=== PATIENT | female | born 1985 | race Caucasian/White ===

== ENCOUNTER 2024-12-25 14:20 | Emergency (ER) | payer OTHER, SELFPAY ==
[2024-12-25] VITALS (13 sets, daily range): BP systolic 130–161; BP diastolic 80–104; PULSE 67–94; RESP 16–20; TEMP 36.5–36.9; O2SAT 93–100; BMI 17.9
--- NOTE | 2024-12-25 14:56 | EKG_ITS ---
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
--- NOTE | 2024-12-25 15:00 | ED_ITS ---
HPI - Nausea/Vomiting/Diarrhea General Chief complaint: Nausea/Vomiting/Diarrhea Stated complaint: possible pulled a muscle throwing up, nausea Time Seen by Provider: 12/25/24 14:42 Source: patient Mode of arrival: Ambulatory History of Present Illness HPI Narrative: 39-year-old female history of back surgery 10 years ago with rods and screws in place presents with nonbilious nonbloody nausea vomiting diarrhea for 5 days with no recent antibiotic use having continued symptoms along with back pain but unable to hold anything down at this time due to nausea vomiting. Patient was seen yesterday at [facility] ER or by CT scan was done and CT scan showed no acute process just diverticulosis without diverticulitis and no other acute process. Other than what is stated 14 point review of system is negative. Related Data Home Medications ?Medication ?Instructions ?Recorded ?Confirmed alprazolam 1 mg tablet 1 mg PO BID-TID PRN anxiety 12/25/24 12/25/24 morphine 60 mg tablet,extended 60 mg PO Q12H 12/25/24 12/25/24 release oxycodone 5 mg capsule 10 mg PO Q4-6H PRN pain 12/0512/25/24 zolpidem 12.5 mg tablet,extended 12.5 mg PO BEDTIME CA N sleep 12/25/24 12/25/24 release,multiphase (Ambien CR) Allergies Allergy/AdvReac Type Severity Reaction Status Date / Time hydrocodone Allergy Severe ITCHING Verified 12/25/24 14:41 Penicillins Allergy Hives Verified 12/25/24 14:41 Review of Systems Review of Systems ROS Unobtainable: All systems reviewed & are unremarkable except as noted in HPI and below Patient History Social History Smoking Status: Never smoker Smoking Status: Never smoker Exam Narrative Exam Narrative: GENERAL: [39] year old patient appears stated age. Well-developed patient, in mild distress. HEAD: Atraumatic. Normocephalic. EYES: Pupils equal round and reactive. Extraocular motions intact. No scleral icterus. No injection or drainage. . NECK: Trachea midline. Non tender CARDIOVASCULAR: Regular rate and rhythm without murmurs, gallops, or rubs. RESPIRATORY: Clear to auscultation. Breath sounds equal bilaterally. No wheezes, rales, or rhonchi. GASTROINTESTINAL: Abdomen soft, non-tender, nondistended. EXTREMITIES: No edema or joint tenderness. BACK: TTP midline T 5 - L 2 without deformity or crepitance. No flank tenderness. NEURO: AOx3. SKIN: No rash or erythema of visible areas Initial Vital Signs Initial Vital Signs: Vital Signs Temperature 97.7 F 12/25/24 14:43 Pulse Rate 94 H 12/25/24 14:43 Respiratory Rate 20 12/25/24 14:43 Blood Pressure 149/93 H 12/25/24 14:43 Pulse Oximetry 97 12/25/24 14:43 Oxygen Delivery Method Room Air 12/25/24 14:43 Course Orders Ordered: ED Orders 12/25/24 14:56 Complete Blood Count AUTO DIFF Stat Comprehensive Metabolic Panel Stat Lipase Stat EKG-12 Lead Stat Ondansetron HCl (Ondansetron 4 Mg/2 Ml Inj) 4 mg IV NOW PRN PRN Reason: Nausea And Vomiting Ondansetron HCl (Ondansetron 4 Mg Odt) 4 mg PO NOW PRN PRN Reason: Nausea And Vomiting Vital Signs Vital signs: Vital Signs - 8 hr 12/25/24 14:43 Temperature 97.7 F Pulse Rate 94 H Respiratory Rate 20 Blood Pressure 149/93 H Pulse Oximetry 97 Oxygen Delivery Method Room Air MDM - Nausea/Vomiting/Diarrhea Imaging Data Extremity x-ray #1: Radiologist's Impression: [place] [address] CT Scan Report Signed Patient: Aureliano Bronson MR#: [id number] : 1985 Acct:[id number] Age/Sex: 39 / F Date of Service: 12/25/24 Loc: ED Accession Number: [id number] Procedure: CT lumbar spine wo con Ordering Provider: Michael Perez D.O. PROCEDURE: CT LUMBAR SPINE WO CON INDICATIONS: pain TECHNIQUE: Noncontrast 3 mm thick sections acquired from the T12 level to the sacrum. Sagittal and coronal reformats were constructed. For radiation dose reduction, the following was used: automated exposure control. COMPARISON: None. FINDINGS: Image quality: Excellent. Bones: 5 [id number] lumbar-type vertebral bodies are present. Thoracic yue and screw fixation extends to L3. Hardware is intact without surrounding lucency. There is normal bony alignment. No acute vertebral body compression fractures. No suspicious lytic or blastic bony lesions. No pars defects. Mineralization is normal. Soft tissues: No retroperitoneal masses or hematomas. Visualized aorta is normal in caliber. Extracavitary soft tissues and visible abdominal organs are unremarkable. IMPRESSION: Postsurgical changes without evidence of postsurgical complication or acute osseous abnormality. Extremity x-ray #2: Radiologist's Impression: [address] [address] [address] Scan Report Signed Patient: Aureliano Bronson MR#: [id number] : 1985 Acct:[id number] Age/Sex: 39 / F Date of Service: 12/25/24 Loc: ED Accession Number: [id number] Procedure: CT thoracic spine wo con Ordering Provider: Michael Perez D.O. PROCEDURE: CT THORACIC SPINE WO CON INDICATIONS: pain TECHNIQUE: Noncontrast 3 mm thick sections acquired through the region of interest in the thoracic spine. Sagittal and coronal reformats were then constructed. For radiation dose reduction, the following was used: automated exposure control. COMPARISON: None. FINDINGS: Image quality: Excellent. Bones: Posterior yue and screw fixation of nearly the entire thoracic spine shows intact hardware without surrounding lucency. There is normal overall bony alignment. No acute vertebral body compression fractures. No suspicious sclerotic or lytic bony lesions. Central spinal canal is of normal overall caliber. Mild disc space narrowing, osteophytosis, and endplate sclerosis is seen at the T3-T4 level. Mineralization is normal. Soft tissues: No paravertebral masses or hematomas. Visualized posteromedial lungs appear clear. IMPRESSION: Postsurgical changes without evidence of postsurgical complication or acute osseous abnormality. MDM Narrative Medical decision making narrative: Vital signs, nurse triage note, medication list, previous ER visits and all imaging studies reviewed. Patient received 1 L bolus lactated ringer for Zofran IV 125 Solu-Medrol Benadryl 50 mg and 20 of Pepcid IV along with Dilaudid 1 mg and [address] thoracic and lumbar show postsurgical changes without evidence of postsurgical complication or acute osseous abnormality. Essentially unremarkable CBC and CMP. Stool cultures were obtained at [facility]. Differential diagnosis includes viral gastroenteritis, salmonella, giardia, C diff, acute on chronic back pain secondary to hardware issue from previous surgery, back spasm, UTI. Patient already has pain and nausea medicines at home. Discharge Plan Departure Patient Disposition: Home Clinical Impression: Vomiting and diarrhea Back pain Qualifiers: Back pain location: low back pain Chronicity: acute Back pain laterality: bilateral Sciatica presence: without sciatica Qualified Code(s): M54.50 - Low back pain, unspecified Prescriptions: No Action oxycodone 5 mg capsule 10 mg PO Q4-6H PRN (Reason: pain) morphine 60 mg tablet extended release 60 mg PO Q12H alprazolam 1 mg tablet 1 mg PO BID-TID PRN (Reason: anxiety) zolpidem [Ambien CR] 12.5 mg tablet,ext release multiphase 12.5 mg PO BEDTIME PRN (Reason: sleep) Referrals: Miscellaneous,Doctor, MD [Primary Care Provider, Medical] Stand Alone Forms: Patient Portal/API
[2024-12-25 15:22] LABS: Add Manual Diff / Slide Review NO; Basophils Absolute Auto 0 /uL (0-100); Basophils Percent Auto 0.4 % (0-2); Eosinophils Absolute Auto 0 /uL (0-450); Eosinophils Percent Auto 0.2 % (2-4); Hematocrit 44.2 % (36-46); Hemoglobin 14.7 g/dL (12.0-16.0); Lymphocytes Absolute Auto 1600 /uL (1100-4500); Lymphocytes Percent Auto 16.5 % (25-40); Mean Corpuscular HGB Conc 33.3 % (30-36); Mean Corpuscular Hemoglobin 29.1 PG (26-34); Mean Corpuscular Volume 87.3 fL (80-100); Monocytes Absolute Auto 500 /uL (0-900); Monocytes Percent Auto 5.1 % (3-14); Neutrophils Absolute Auto 7700 /uL (1500-7000); Neutrophils Percent Auto 77.8 % (50-75); Platelet Count 281 X10^3/uL (150-400); Red Blood Cell Count 5.06 X10^6/uL (4.0-5.2); Red Cell Distribution Width 13.6 % (11.6-14.8); White Blood Cell Count 9.9 X10^3/uL (4.5-11.0)
[2024-12-25] MEDS: ONDANSETRON 4 MG/2 ML INJ IV (15:22)
[2024-12-25] MEDS: LACTATED RINGERS 1,000 ML 1000 ML IV (15:22)
--- NOTE | 2024-12-25 15:25 | DI.CT.S_ITS ---
PROCEDURE: CT LUMBAR SPINE WO CON INDICATIONS: pain TECHNIQUE: Noncontrast 3 mm thick sections acquired from the T12 level to the sacrum. Sagittal and coronal reformats were constructed. For radiation dose reduction, the following was used: automated exposure control. COMPARISON: None. FINDINGS: Image quality: Excellent. Bones: 5 cgm-[id number]-gvfjzko lumbar-type vertebral bodies are present. Thoracic yue and screw fixation extends to L3. Hardware is intact without surrounding lucency. There is normal bony alignment. No acute vertebral body compression fractures. No suspicious lytic or blastic bony lesions. No pars defects. Mineralization is normal. Soft tissues: No retroperitoneal masses or hematomas. Visualized aorta is normal in caliber. Extracavitary soft tissues and visible abdominal organs are unremarkable. IMPRESSION: Postsurgical changes without evidence of postsurgical complication or acute osseous abnormality. Dictated by: Shae Burleson M.D. on 12/25/2024 at 15:51 Approved by: Shae Burleson M.D. on 12/25/2024 at 15:53
--- NOTE | 2024-12-25 15:25 | DI.CT.S_ITS ---
PROCEDURE: CT THORACIC SPINE WO CON INDICATIONS: pain TECHNIQUE: Noncontrast 3 mm thick sections acquired through the region of interest in the thoracic spine. Sagittal and coronal reformats were then constructed. For radiation dose reduction, the following was used: automated exposure control. COMPARISON: None. FINDINGS: Image quality: Excellent. Bones: Posterior yue and screw fixation of nearly the entire thoracic spine shows intact hardware without surrounding lucency. There is normal overall bony alignment. No acute vertebral body compression fractures. No suspicious sclerotic or lytic bony lesions. Central spinal canal is of normal overall caliber. Mild disc space narrowing, osteophytosis, and endplate sclerosis is seen at the T3-T4 level. Mineralization is normal. Soft tissues: No paravertebral masses or hematomas. Visualized posteromedial lungs appear clear. IMPRESSION: Postsurgical changes without evidence of postsurgical complication or acute osseous abnormality. Dictated by: Shae Burleson M.D. on 12/25/2024 at 15:47 Approved by: Shae Burleson M.D. on 12/25/2024 at 15:50
[2024-12-25 15:33] LABS: Alanine Aminotransferase 14 IU/L (<35); Albumin 4.7 g/dL (3.5-5.0); Albumin Globulin Ratio 1.7 (1.0-2.8); Alkaline Phosphatase 75 U/L (38-126); Aspartate Aminotransferase 20 IU/L (14-36); BUN Creatinine Ratio 14.8 (6-22); Bilirubin Total 0.8 mg/dL (0.2-1.3); Blood Urea Nitrogen 9 mg/dL (7-17); Calcium 9.3 mg/dL (8.4-10.2); Carbon Dioxide 28 mmol/L (22-32); Chloride 108 mmol/L (98-107); Estimated Glomerular Filt Rate > 60 mL/min (>60); Globulin 2.8 g/dL (1.7-4.1); Glucose 86 mg/dL (70-99); HEMOLYSIS < 15 (0-50); Lipase 334 U/L (23-300); Potassium 3.5 mmol/L (3.4-5.1); Sodium 145 mmol/L (137-145); Total Protein 7.5 g/dL (6.3-8.2)
[2024-12-25] MEDS: HYDROMORPHONE 1 MG INJ IV (15:45)
[2024-12-25] MEDS: diphenhydrAMINE 25 MG TABLET 50 MG PO (17:11)
[2024-12-25] MEDS: FAMOTIDINE 20 MG/2 ML VIAL IV (17:12)
[2024-12-25] MEDS: MORPHINE 4 MG/ML INJ IV (17:12)
[2024-12-25] MEDS: methylPREDNISolone 125 MG/2 ML VIAL IV (17:12)
--- NOTE | 2024-12-25 17:24 | PC.NURSE ---
1700: Patient calls this RN. RN checks on patient. She reports redness and itchiness from the adhesive tape for her IV. I forgot to tell you I don't do well with adhesive. This RN removes the adhesive tape and uses coban to help secure IV. IV is flushed with 10cc of normal saline and blood draws back. No pain with IV or flushing. Pt does not report any other symptoms. elsewhere. Denies SOB, difficulty breathing, or difficulty swallowing. Provider Chris made aware and new orders as per SEP.
--- NOTE | 2024-12-25 17:52 | PC.NURSE ---
Patient oxygen saturation drops to 84% on room air. This RN checks on patient. Encourages upright position and deep breathing. Patient oxygen saturation quickly climbs to 98% on room air. Provider Chris made aware.
== END 2024-12-25 18:30 | disposition home or self-care (01) ==
PROVIDERS: Emergency Provider Family Medicine
DX: R19.7 Diarrhea, unspecified (principal); M54.50 Low back pain, unspecified; R11.10 Vomiting, unspecified
CPT/HCPCS: 36415; 72128; 72131; 80053; 81003; 81025; 83690; 85025; 93005; 93010; 96361; 96374; 96375; 99284; J1171; J2270; J2405; J2919

== ENCOUNTER 2025-01-30 11:47 | Observation (INO) | payer OTHER, SELFPAY ==
[2025-01-30] VITALS (24 sets, daily range): BP systolic 86–153; BP diastolic 51–78; PULSE 63–93; RESP 10–34; TEMP 36.4–36.8; O2SAT 96–100; BMI 19.8
--- NOTE | 2025-01-30 11:55 | EKG_ITS ---
[address] [address] Test Date: 2025-01-30 Pat Name: Aureliano Bronson Department: Room: Gender: Female Faculty Research Assistant: KI : 1985 Requested By: Order Number: [id number] Reading MD: Gary Hart Measurements Intervals [place] Rate: 59 P: 28 MO: 132 QRS: 54 QRSD: 76 T: 32 QT: 450 QTc: 445 Interpretive Statements Sinus bradycardia Possible Left atrial enlargement Electronically Signed On 02-10-2025 8:48:42 PDT by Gary Hart
--- NOTE | 2025-01-30 13:09 | PC.NURSE ---
Pt arrived to ED via EMS after having slurred speech and dizziness at work. Pt has hx of POTS, spinal fusion & nerve ablation. Pt takes pain 60mgs Morphine BID for chronic pain but states that she does not take it during the day or at work. Pt states that she did not take her morphine prior to work today. EMS reported that pt's bp 80s systolic in field but pt reports that is normal for her. Pt speech slurred and slow and pupils pinpoint. a&ox4, airway patent and pt managing secretions. MD aware of pt status.
--- NOTE | 2025-01-30 13:17 | DI.RAD.S_ITS ---
PROCEDURE: XR CHEST 1V INDICATIONS: Chest Pain TECHNIQUE: One view of the chest was acquired. COMPARISON: None. FINDINGS: Surgical changes and devices: Fixation rods are noted in thoracic and lumbar spine . Lungs and pleura: Lungs are clear. No pleural effusions or pneumothorax. Mediastinum: Mediastinal contours appear normal. Heart size is normal. Bones and chest wall: No suspicious bony lesions. Overlying soft tissues appear unremarkable. IMPRESSION: No acute cardiopulmonary pathology. Dictated by: Jim Damon M.D. on 01/30/2025 at 14:10 Approved by: Jim Damon M.D. on 01/30/2025 at 14:11
[2025-01-30 13:31] LABS: Add Manual Diff / Slide Review NO; Hematocrit 40.4 % (36-46); Hemoglobin 13.6 g/dL (12.0-16.0); Lymphocytes Absolute Auto 1800 /uL (1100-4500); Mean Corpuscular HGB Conc 33.7 % (30-36); Mean Corpuscular Hemoglobin 29.6 PG (26-34); Mean Corpuscular Volume 87.9 fL (80-100); Platelet Count 284 X10^3/uL (150-400)
--- NOTE | 2025-01-30 14:05 | ED.WEAKNESS ---
HPI - Weakness General Chief complaint: Weakness Stated complaint: low bp w/ weakness Time Seen by Provider: 01/30/25 12:22 Source: patient Mode of arrival: EMS History of Present Illness HPI Narrative: 39-year-old female who had a history of of brief syncopal episode that was unwitnessed with no precursors Eleanor history of thoracic lumbar fusion surgery for kyphosis presents today with the paramedics for increased sleepiness at work. She presents here and is alert but obviously a bit drowsy But arousable. Related Data Home Medications ?Medication ?Instructions ?Recorded ?Confirmed alprazolam 1 mg tablet 1 mg PO BID-TID PRN anxiety 12/25/24 12/25/24 morphine 60 mg tablet,extended 60 mg PO Q12H 12/25/24 12/25/24 release oxycodone 5 mg capsule 10 mg PO Q4-6H PRN pain 12/25/24 12/25/24 zolpidem 12.5 mg tablet,extended 12.5 mg PO BEDTIME PRN sleep 12/25/24 12/25/24 release,multiphase (Ambien CR) Allergies Allergy/AdvReac Type Severity Reaction Status Date / Time hydrocodone Allergy Severe ITCHING Verified 12/25/24 14:41 Penicillins Allergy Hives Verified 12/25/24 14:41 adhesive tape AdvReac Intermediate ITCHING Verified 12/25/24 19:25 Review of Systems Review of Systems ROS Unobtainable: All systems reviewed & are unremarkable except as noted in HPI and below Exam Narrative Exam Narrative: General: Patient appears to be in no acute distress, acting appropriately but a bit drowsy Head: normocephalic, atraumatic, HEENT: Pupils equal round reactive, eyes tracking well, neck supple, no JVD Heart: regular rate and rhythm, no murmurs, rubs, or gallops heard Lungs: clear to auscultation, no adventitious sounds Abdomen: soft , nontender, nondistended, positive bowel sounds Neurological: no focal neurological signs, moving all extremities well, alert and oriented x3, Psych: good judgment ,good insight, mood is normal. back: pain with palpation along spine and pain in upper thigh areas Initial Vital Signs Initial Vital Signs: Vital Signs Pulse Rate 63 01/30/25 11:50 Blood Pressure 93/51 L 01/30/25 11:50 Pulse Oximetry 97 01/30/25 11:50 Course Course Course Narrative: Patient has a rhabdomyolysis picture and so was given 3 L of crystalloid solution. Decision to Admit Date: 01/30/25 Decision to Admit time: 19:33 Orders Ordered: ED Orders 01/30/25 11:45 Complete Blood Count AUTO DIFF Stat Comprehensive Metabolic Panel Stat Lipase Stat Magnesium Stat NT-proBNP (BNP-Adult 18+) Stat Troponin & CK Cardiac Panel Stat 01/30/25 13:17 XR chest 1V Stat EKG-12 Lead Stat 01/30/25 14:37 XR lumbar spine 2-3V Stat 01/30/25 16:27 CT abdomen pelvis wo con Stat Discontinued Medications Aspirin (Aspirin 81 Mg Chew Tab) 324 mg PO NOW ONE Stop: 01/30/25 13:18 Last Admin: 01/30/25 13:25 Dose: Not Given Documented By: BT Lactated Ringer's (Lactated Ringers) 1,000 mls @ 1,000 mls/hr IV BOLUS ONE Stop: 01/30/25 15:20 Last Admin: 01/30/25 14:36 Dose: Not Given Documented By: MPO Sodium Chloride (Normal Saline 0.9%) 500 mls @ 1,000 mls/hr IV BOLUS ONE Stop: 01/30/25 14:53 Last Infusion: 01/30/25 15:58 Dose: Infused Documented By: Admin: 01/30/25 14:32 Dose: 1,000 mls/hr Documented By: MPO Sodium Chloride (Normal Saline 0.9%) 1,000 mls @ 1,000 mls/hr IV BOLUS ONE Stop: 01/30/25 17:25 Last Infusion: 01/30/25 18:23 Dose: Infused Documented By: Admin: 01/30/25 16:33 Dose: 1,000 mls/hr Documented By: RLS Ketorolac Tromethamine (Ketorolac 30 Mg/Ml Vial) 15 mg IV NOW ONE Stop: 01/30/25 14:23 Last Admin: 01/30/25 14:32 Dose: 15 mg Documented By: MPO Reevaluation(s) Reevaluation #1: Upon re-evaluation, patient still has some muscle pain and so will talk to the hospitalist about potential observation admission. Consultations Consultation #1: Dr. King was consulted and graciously agreed to put patient in under observation for continual fluid replacement. Vital Signs Vital signs: Vital Signs - 8 hr 01/30/25 11:50 01/30/25 11:50 01/30/25 12:00 Temperature Pulse Rate 63 Respiratory Rate Blood Pressure 93/51 L 90/54 L Pulse Oximetry 97 Oxygen Delivery Method 01/30/25 12:00 01/30/25 12:06 01/30/25 12:30 Temperature 97.6 F Pulse Rate 64 65 Respiratory Rate 16 14 Blood Pressure 93/51 L 86/51 L Pulse Oximetry 100 98 Oxygen Delivery Method Room Air 01/30/25 12:30 01/30/25 13:00 01/30/25 13:00 Temperature Pulse Rate 73 75 Respiratory Rate 18 16 Blood Pressure 101/66 Pulse Oximetry 99 99 Oxygen Delivery Method 01/30/25 13:30 01/30/25 13:30 01/30/25 14:00 Temperature Pulse Rate 72 Respiratory Rate 18 Blood Pressure 106/63 94/53 L Pulse Oximetry 99 Oxygen Delivery Method 01/30/25 14:00 01/30/25 14:30 01/30/25 14:30 Temperature Pulse Rate 63 70 Respiratory Rate 10 L 14 Blood Pressure 107/59 L Pulse Oximetry 98 99 Oxygen Delivery Method 01/30/25 15:11 01/30/25 15:30 01/30/25 16:00 Temperature Pulse Rate 76 79 Respiratory Rate 15 20 24 Blood Pressure Pulse Oximetry 100 98 Oxygen Delivery Method 01/30/25 16:30 01/30/25 17:00 01/30/25 17:30 Temperature Pulse Rate 88 83 77 Respiratory Rate 18 21 15 Blood Pressure Pulse Oximetry 100 100 100 Oxygen Delivery Method MDM - Weakness Differential Diagnosis Differential diagnosis: Likely anemia, rhabdomyolysis and dehydration Lab Data 01/30/25 11:45 01/30/25 11:45 Labs: Lab Results 01/30/25 Range/Units 11:45 WBC 9.3 (4.5-11.0) X10^3/uL RBC 4.59 (4.0-5.2) X10^6/uL Hgb 13.6 (12.0-16.0) g/dL Hct 40.4 (36-46) % MCV 87.9 (80-100) fL MCH 29.6 (26-34) PG MCHC 33.7 (30-36) % RDW 13.6 (11.6-14.8) % Plt Count 284 (150-400) X10^3/uL Neut % (Auto) 74.4 (50-75) % Lymph % (Auto) 19.3 L (25-40) % [place] % (Auto) 5.3 (3-14) % Eos % (Auto) 0.5 L (2-4) % Baso % (Auto) 0.5 (0-2) % Neut # (Auto) 7000 (1681-6025) /uL Lymph # (Auto) 1800 (0897-6833) /uL [place] # (Auto) 500 (0-900) /uL Eos # (Auto) 0 (0-450) /uL Baso # (Auto) 0 (0-100) /uL Sodium 136 L (137-145) mmol/L Potassium 4.0 (3.4-5.1) mmol/L Chloride 101 (98-107) mmol/L Carbon Dioxide 23 (22-32) mmol/L BUN 14 (7-17) mg/dL Creatinine 0.55 (0.52-1.04) mg/dL Estimated GFR > 60 (>60) mL/min BUN/Creatinine Ratio 25.5 H (6-22) Glucose 90 (70-99) mg/dL Calcium 9.3 (8.4-10.2) mg/dL Magnesium 2.1 (1.6-2.3) mg/dL Total Bilirubin 1.1 (0.2-1.3) mg/dL AST 227 H (14-36) IU/L ALT 61 H (<35) IU/L Alkaline Phosphatase 84 (38-126) U/L Total Creatine Kinase > 1600 H (30-135) U/L Troponin I < 0.012 (0.01-0.034) ng/mL NT-Pro-B Natriuret Pep 66 (<125) pg/mL Total Protein 7.5 (6.3-8.2) g/dL Albumin 4.5 (3.5-5.0) g/dL Globulin 3.0 (1.7-4.1) g/dL Albumin/Globulin Ratio 1.5 (1.0-2.8) Lipase 19 L (23-300) U/L ECG Data Interpretation: Patient has a sinus bradycardia, normal axis, normal sinus rhythm, he denied beats per minute, normal DC intervals, no STT wave changes. PVC EKG was the same sinus bradycardia with possible left atrial enlargement. MDM Narrative Medical decision making narrative: 39-year-old with a rhabdomyolysis picture. Has had 3 L of crystalloid solution so far. Patient is still in pain. She she is a chronic opioid user and is awaiting her opioid usual dosing. Discharge Plan Departure Patient Disposition: Admitted as Observation Clinical Impression: Rhabdomyolysis Qualifiers: Rhabdomyolysis type: traumatic Encounter type: initial encounter Qualified Code(s): T79.6XXA - Traumatic ischemia of muscle, initial encounter Admit Date/Time: 01/30/25 19:31 Admit Provider: Gian King
[2025-01-30 14:20] LABS: Alanine Aminotransferase 61 IU/L (<35); Albumin 4.5 g/dL (3.5-5.0); Albumin Globulin Ratio 1.5 (1.0-2.8); Alkaline Phosphatase 84 U/L (38-126); Blood Urea Nitrogen 14 mg/dL (7-17); Calcium 9.3 mg/dL (8.4-10.2); Carbon Dioxide 23 mmol/L (22-32); Chloride 101 mmol/L (98-107); Creatine Kinase > 1600 U/L (30-135); Estimated Glomerular Filt Rate > 60 mL/min (>60); Globulin 3.0 g/dL (1.7-4.1); Glucose 90 mg/dL (70-99); Lipase 19 U/L (23-300); Magnesium 2.1 mg/dL (1.6-2.3); Potassium 4.0 mmol/L (3.4-5.1); Sodium 136 mmol/L (137-145); Total Protein 7.5 g/dL (6.3-8.2)
[2025-01-30 14:21] LABS: HEMOLYSIS 103 (0-50)
[2025-01-30 14:32] LABS: NT-proBNP (BNP-Adult 18+) 66 pg/mL (<125); Troponin I < 0.012 ng/mL (0.01-0.034)
[2025-01-30] MEDS: SODIUM CHLORIDE 0.9% 500 ML 1000 ML IV (14:32)
[2025-01-30] MEDS: KETOROLAC 30 MG/ML VIAL 15 MG IV (14:32)
--- NOTE | 2025-01-30 14:37 | DI.RAD.S_ITS ---
PROCEDURE: XR LUMBAR SPINE 2-3V INDICATIONS: fall 2 days ago TECHNIQUE: 3 views of the lumbar spine were acquired. COMPARISON: None. FINDINGS: Bones: 5 jsi-bbo-cffatix vertebrae are present. There is straightening of normal lumbar lordosis. Fixation hardware in mid to lower thoracic spine and upper lumbar spine is seen extending to L3 level. No acute vertebral body compression fractures. Degenerative endplate changes are noted throughout lower thoracic and lumbar spine. No suspicious bony lesions. Soft tissues: Overlying bowel gas pattern is normal. No suspicious soft tissue calcifications. IMPRESSION: Postsurgical changes in thoracic and lumbar spine. No acute vertebral body compression fracture. Mild spondylitic changes throughout thoracic and lumbar spine. Dictated by: Jim Damon M.D. on 01/30/2025 at 15:32 Approved by: Jim Damon M.D. on 01/30/2025 at 15:33
--- NOTE | 2025-01-30 14:39 | PC.NURSE ---
Pt a&ox4. PEERLA & pupils 2mm.
--- NOTE | 2025-01-30 16:27 | DI.CT.S_ITS ---
PROCEDURE: CT ABDOMEN PELVIS WO CON INDICATIONS: liver enzymes elevated/ look for end organ damage TECHNIQUE: CT of the abdomen and pelvis was obtained without intravenous contrast. Coronal and sagittal reformats were performed. For radiation dose reduction, the following was used: automated exposure control, adjustment of mA and/or kV according to patient size. COMPARISON: Merged With [facility], CT, CT CHEST ABDOMEN PELVIS WITH TRAUMA, 12/26/2024, 17:04. FINDINGS: Image quality: Diagnostic. Lower Chest: No significant findings. ABDOMEN: Liver: No contour-deforming mass. Gallbladder: No radiopaque gallstones or wall thickening. Biliary ducts: No biliary dilation. Pancreas: No ductal dilation. Spleen: Size is within normal limits. Adrenal Glands: No adrenal nodules. Kidneys and Ureters: No hydronephrosis. No contour-deforming mass. Stomach and Bowel: Normal colonic caliber, without significant wall thickening. Moderate fecal stasis throughout the colon is seen. No abscess collection. Peritoneum: No abnormal intraperitoneal fluid. No free air. Ventral Wall: No significant hernia. Abdominal Nodes: No retroperitoneal or mesenteric adenopathy by size criteria. Vessels: Aorta and inferior vena cava are normal in size. PELVIS: Pelvic Organs: Unremarkable. Bladder: Unremarkable. Pelvic Nodes: No enlarged lymph nodes. Miscellaneous: No inguinal hernias are seen. Bones: No aggressive osseous abnormality. Fixation hardware in lower thoracic and lumbar spine is seen. IMPRESSION: 1. Moderate constipation and fecal impaction. No bowel obstruction or abnormal bowel wall thickening. No free fluid or free air. 2. No evidence of acute solid organ injury is seen in abdomen or pelvis. No acute inflammatory process is noted. 3. Finding is not significantly changed from recent study. Dictated by: Jim Damon M.D. on 01/30/2025 at 16:50 Approved by: Jim Damon M.D. on 01/30/2025 at 16:55
[2025-01-30] MEDS: SODIUM CHLORIDE 0.9% 1,000 ML 1000 ML IV (16:33)
[2025-01-30] MEDS: MORPHINE ER 15 MG TABLET 60 MG PO (19:21)
[2025-01-30] MEDS: SODIUM CHLORIDE 0.9% 1,000 ML 125 ML IV (22:48)
[2025-01-30] MEDS: SENNOSIDES 8.6 MG TABLET 17.2 MG PO (22:50)
[2025-01-30] MEDS: OXYCODONE IR 5 MG TABLET 10 MG PO (22:50)
[2025-01-30] MEDS: ZOLPIDEM 5 MG TABLET PO (23:51)
[2025-01-31] MEDS: OXYCODONE IR 5 MG TABLET 10 MG PO (02:27)
[2025-01-31 03:00] VITALS: BP 104/58; PULSE 63; RESP 12; TEMP 36.1; O2SAT 95
--- NOTE | 2025-01-31 03:41 | PM.HP.1 ---
History of Present Illness History of Present Illness Chief complaint: low bp w/ weakness Narrative: 39 years old female with history of thoracic lumbar fusion surgery for kyphosis, anxiety, depression, chronic pain syndrome presented to the ER with increased sleepiness at work. The patient was sent to the ED from her work with concern of confusion and sleepiness. She also reported unwitnessed brief syncopal episode few days ago. Currently on multiple medications including morphine, oxycodone, Zofran, alprazolam, sertraline, Ambien, clonidine, diazepam, fludrocortisone. Imaging study negative. Laboratory unremarkable except AST 27, ALT 61, CPK over 1600 and lipase 19. In the ER she was given over 2 L of fluids and the patient was still somnolent. She also was complaining of pain. On presentation the patient was her baseline mentation. [facility] Social History Smoking Status: Never smoker Meds Home Medications and Allergies Home Medications ?Medication ?Instructions ?Recorded ?Confirmed ?Type morphine 60 mg tablet,extended 60 mg PO Q12H 12/25/24 01/30/25 History release oxycodone 5 mg capsule 10 mg PO Q4-6H PRN pain 12/25/24 01/30/25 History zolpidem 12.5 mg tablet,extended 12.5 mg PO BEDTIME PRN sleep 12/25/24 01/30/25 History release,multiphase (Ambien CR) clonidine HCl 0.1 mg tablet 0.05 - 0.1 mg PO ONCE PM PRN 01/30/25 01/30/25 History hypertension diazepam 10 mg tablet 10 mg PO 3XD PRN muscle spasm 01/30/25 01/30/25 History fludrocortisone 0.1 mg tablet 0.1 mg PO 3XW 01/30/25 01/30/25 History metoclopramide HCl 10 mg tablet 10 mg PO Q6H PRN nausea/vomiting 01/30/25 01/30/25 History sertraline 25 mg tablet 25 mg PO DAILY 01/30/25 01/30/25 History tizanidine 4 mg tablet 8 mg PO Q8H PRN muscle spasm 01/30/25 01/30/25 History Allergies Allergy/AdvReac Type Severity Reaction Status Date / Time hydrocodone Allergy Severe ITCHING Verified 12/25/24 14:41 Penicillins Allergy Hives Verified 12/25/24 14:41 adhesive tape AdvReac Intermediate ITCHING Verified 12/25/24 19:25 Review of Systems Review of Systems ROS: Yes All systems reviewed with the patient and are negative except as otherwise documented Constitutional Constitutional: Reports as per HPI and Reports system reviewed and no additional complaints, except as documented Eyes Eyes: Reports as per HPI and Reports system reviewed and no additional complaints, except as documented ENT Ears, Nose, Mouth, and Throat: Yes as per HPI and Yes system reviewed and no additional complaints, except as documented Cardiovascular Cardiovascular: Reports system reviewed and no additional complaints, except as documented Respiratory Respiratory: Reports system reviewed and no additional complaints, except as documented Gastrointestinal Gastrointestinal: Reports system reviewed and no additional complaints, except as documented Genitourinary Genitourinary: Reports system reviewed and no additional complaints, except as documented Musculoskeletal Musculoskeletal: Reports system reviewed and no additional complaints, except as documented, Reports abnormal gait and Reports numbness Neurologic Neurologic: Reports system reviewed and no additional complaints, except as documented, Reports abnormal gait, Reports confusion and Reports numbness Psychiatric Psychiatric: Reports system reviewed and no additional complaints, except as documented and Reports confusion Exam Vital Signs (past 8 hours): - 01/30/25 20:00 01/30/25 20:00 01/30/25 20:30 Temperature Pulse Rate 93 H Respiratory Rate 24 Blood Pressure 133/73 137/78 Pulse Oximetry 97 Oxygen Flow Rate 01/30/25 20:30 01/30/25 21:15 01/31/25 03:00 Temperature 98.2 F 97 F L Pulse Rate 92 H 90 63 Respiratory Rate 19 20 12 Blood Pressure 153/62 H 104/58 L Pulse Oximetry 98 98 95 Oxygen Flow Rate 0 0 Oxygen Delivery Method Room Air Oxygen Flow Rate 0 Const General: cooperative, comfortable and well developed Orientation: alert and oriented x3 HENMT Head: normal to inspection, normocephalic and atraumatic Face and sinus: normal facial exam Mouth: oral mucosae normal and moist mucous membranes Throat: posterior oropharynx normal Eyes General: appearance normal, both eyes and all related structures Pupils: PERRL EOM: EOM intact bilaterally Neck Neck: normal visual inspection and full ROM Chest Chest: normal inspection of the chest Resp Effort & Inspection: normal respiratory effort and able to speak in complete sentences Auscultation: clear to auscultation bilaterally Cardio Palpation: normal PMI Rate: regular rate Rhythm: regular rhythm Heart Sounds: S1 normal and S2 normal GI Inspection: normal to inspection Palpation: soft and no hepatosplenomegaly Auscultation: normal bowel sounds Skin General: no rashes or lesions noted Lesions: no lesions Rashes: no rashes Trauma: no lacerations or abrasions Neuro General: patient alert, patient awake, patient oriented x3 and no focal motor deficits Cranial Nerves: CN's II-XI intact bilaterally Cognition: normal cognition Speech: speech normal Gait: normal gait Motor: muscle tone normal throughout Sensory Exam: no sensory deficits noted Extrem General: full ROM and no calf tenderness Psych Appearance: grossly normal Mental Status: mental status grossly normal Speech and Movement: speech and movement normal Objective Labs 01/30/25 11:45 01/30/25 11:45 Labs: Laboratory Results - last 24 hr 01/30/25 11:45 WBC 9.3 RBC 4.59 Hgb 13.6 Hct 40.4 MCV 87.9 MCH 29.6 MCHC 33.7 RDW 13.6 Plt Count 284 Neut % (Auto) 74.4 Lymph % (Auto) 19.3 L [place] % (Auto) 5.3 Eos % (Auto) 0.5 L Baso % (Auto) 0.5 Neut # (Auto) 7000 Lymph # (Auto) 1800 [place] # (Auto) 500 Eos # (Auto) 0 Baso # (Auto) 0 Sodium 136 L Potassium 4.0 Chloride 101 Carbon Dioxide 23 BUN 14 Creatinine 0.55 Estimated GFR > 60 BUN/Creatinine Ratio 25.5 H Glucose 90 Calcium 9.3 Magnesium 2.1 Total Bilirubin 1.1 AST 227 H ALT 61 H Alkaline Phosphatase 84 Total Creatine Kinase > 1600 H Troponin I < 0.012 NT-Pro-B Natriuret Pep 66 Total Protein 7.5 Albumin 4.5 Globulin 3.0 Albumin/Globulin Ratio 1.5 Lipase 19 L Assessment & Plan Assessment & Plan narrative: Persistent somnolence, most likely due to polypharmacy. At presentation the patient her baseline. Will introduce her home medications cautiously. Patient is asking for her pain medications and benzodiazepines. Mild rhabdomyolysis with normal creatinine. Given 3 L of NS. EKG shows sinus bradycardia. Will continue fluid maintenance and BMP in the morning Syncopal episode. Cardiac exam is negative. The patient denies any chest pain. Will continue telemetry. Elevated LFTs with unclear etiology. Will send acute hepatitis panel and will order hepatobiliary ultrasound. Lipase and bilirubin negative. I performed this consultation using real-time telehealth tools, including a live video connection between my location and the patient's location. As the provider for this telehealth service, I attest that I introduced myself to the patient, provided my credentials, disclosed my location, and determined that, based on a review of the patients chart and/or a discussion with members of the patient's treatment team, telemedicine via a real-time, two-way, interactive audio and video platform is an appropriate and effective means of providing this service. The patient and I mutually agree that this visit is appropriate for telemedicine as well. Disclaimer Note: To increase efficiency, your provider may have prepared this document using voice recognition technology. In that case, if a word or phrase is confusing, or does not make sense, this is likely due to a recognition error within the program which was not discovered during the provider?s review. If you believe an error has occurred, please notify your provider?s office at your earliest convenience, so we can correct any mistakes. Time-Based Coding :: [TOTAL MINUTES] spent with patient and on the chart (including review of chart, obtaining history, exam, reviewing outside data, placing orders, documenting exam and treatment plan, and counseling patient) on [DATE]. Quality VTE Deep Vein Thrombosis/Pulmonary Embolism Present on Admission: No MIPS - Admit I confirm the patient?s Advance Care Plan is present, Code status is documented, Surrogate decision maker is in patient?s record [If Yes, STOP here]: Yes MIPS - Meds 'Current medications' to include all prescriptions, [id number] products, herbals, cannabis/cannabidiol products, and vitamin/mineral/dietary (nutritional) supplements. I have utilized all available resources to obtain, update, or review the patient?s current medications. [If Yes, STOP here]: Yes
--- NOTE | 2025-01-31 03:47 | DI.US.S_ITS ---
PROCEDURE: US ABDOMEN LIMITED INDICATIONS: ELEVATED LIVER FUNCTION TESTS TECHNIQUE: Real-time focused scanning was performed of the abdomen, with image documentation. COMPARISON: [facility], CT, CT ABDOMEN PELVIS WO CON, 01/30/2025, 16:32. FINDINGS: Liver measures 17 cm. Gallbladder is within normal limits. Prominent fold is seen in the middle of the gallbladder. No discrete stones or focal tenderness. CBD measures 8 mm. IMPRESSION: Mildly dilated CBD at 8 mm. MRCP or ERCP could further evaluate if clinically appropriate. Unremarkable sonographic appearance of the gallbladder. No significant pericholecystic fluid. Dictated by: Sherwin Orta M.D. on 01/31/2025 at 8:54 Approved by: Sherwin Orta M.D. on 01/31/2025 at 8:55
[2025-01-31 05:41] LABS: Add Manual Diff / Slide Review NO; Hematocrit 32.8 % (36-46); Hemoglobin 11.3 g/dL (12.0-16.0); Lymphocytes Absolute Auto 1800 /uL (1100-4500); Mean Corpuscular HGB Conc 34.5 % (30-36); Mean Corpuscular Hemoglobin 30.5 PG (26-34); Mean Corpuscular Volume 88.4 fL (80-100); Platelet Count 222 X10^3/uL (150-400)
[2025-01-31 05:53] LABS: Magnesium 1.9 mg/dL (1.6-2.3)
[2025-01-31] MEDS: SODIUM CHLORIDE 0.9% 1,000 ML 125 ML IV ×2 (06:43→14:44)
[2025-01-31 08:00] VITALS: BP 94/54; PULSE 66; RESP 16; TEMP 36.6; O2SAT 95
[2025-01-31 10:13] LABS: Acetaminophen < 10 ug/mL (10-30); Alanine Aminotransferase 39 IU/L (<35); Albumin 3.1 g/dL (3.5-5.0); Albumin Globulin Ratio 1.3 (1.0-2.8); Alkaline Phosphatase 66 U/L (38-126); Blood Urea Nitrogen 8 mg/dL (7-17); Calcium 8.5 mg/dL (8.4-10.2); Carbon Dioxide 26 mmol/L (22-32); Chloride 110 mmol/L (98-107); Creatine Kinase 747 U/L (30-135); Estimated Glomerular Filt Rate > 60 mL/min (>60); Globulin 2.4 g/dL (1.7-4.1); Glucose 89 mg/dL (70-99); HEMOLYSIS < 15 (0-50); Potassium 3.7 mmol/L (3.4-5.1); Sodium 139 mmol/L (137-145); Total Protein 5.5 g/dL (6.3-8.2)
[2025-01-31 12:00] VITALS: BP 100/56; PULSE 81; RESP 18; O2SAT 98
[2025-01-31] MEDS: MORPHINE ER 15 MG TABLET 30 MG PO (13:32)
[2025-01-31 14:22] LABS: UR Morphine/Opiate cutoff 300 Positive (Negative); Ur Specific Gravity Normal (Normal); Urine MDMA Negative (Negative); Urine Methamphetamines Negative (Negative); Urine Tetrahydrocannabinol Negative (Negative); Urine Tricyclic Antidepressant Negative (Negative)
--- NOTE | 2025-01-31 14:56 | P.DS_ITS ---
History of Present Illness History of Present Illness Date Patient Seen: 01/31/25 Chief complaint: low bp w/ weakness Narrative: Chief complaint: Polypharmacy with intoxication and fall minor rhabdomyolysis History of present illness: 01/30: 39 years old female with history of thoracic lumbar fusion surgery for kyphosis, anxiety, depression, chronic pain syndrome presented to the ER with increased sleepiness at work. The patient was sent to the ED from her work with concern of confusion and sleepiness. She also reported unwitnessed brief syncopal episode few days ago. Currently on multiple medications including morphine, oxycodone, Zofran, alprazolam, sertraline, Ambien, clonidine, diazepam, fludrocortisone. Imaging study negative. Laboratory unremarkable except AST 27, ALT 61, CPK over 1600 and lipase 19. In the ER she was given over 2 L of fluids and the patient was still somnolent. She also was complaining of pain. On presentation the patient was her baseline mentation. Hospital course: 01/31: Patient is still lethargic slurred speech and words could barely keep her eyes open on the morning of evaluation. As the day progressed and medications were held patient became more alert conversant and cogent. Physical exam: Patient alert with normal level of mentation No labored respirations No impaired movement CPK de-escalated as did the transaminases which are not liver in origin but undoubtedly musculoskeletal in origin. Patient discharged home in stable condition and instructed to follow up closely with her pain management/family care physician. 25 minutes were involved in managing the discharge of this patient including [id number] evaluation and review of laboratory and communication with patient's primary care office Discharge Providers Provider Date of admission: 01/30/25 19:31 Discharge Date: 01/31/25 Primary care physician: Vee Kilpatrick DNP, PHYSICAL EDUCATION AIDE Discharge provider: Kosta Sandoval MD Exam Vital Signs (past 8 hours): - 01/31/25 08:00 01/31/25 12:00 Temperature 97.9 F Pulse Rate 66 81 Respiratory Rate 16 18 Blood Pressure 94/54 L 100/56 L Pulse Oximetry 95 98 Oxygen Delivery Method Room Air Oxygen Flow Rate 0 Objective Labs 01/31/25 04:42 01/31/25 09:47 Labs: Laboratory Results - last 24 hr 01/31/25 01/31/25 01/31/25 04:42 09:47 13:00 WBC 7.0 RBC 3.72 L Hgb 11.3 L Hct 32.8 L MCV 88.4 MCH 30.5 MCHC 34.5 RDW 13.6 Plt Count 222 Neut % (Auto) 68.5 Lymph % (Auto) 25.5 [place] % (Auto) 5.2 Eos % (Auto) 0.4 L Baso % (Auto) 0.4 Neut # (Auto) 4800 Lymph # (Auto) 1800 [place] # (Auto) 400 Eos # (Auto) 0 Baso # (Auto) 0 Sodium 139 Potassium 3.7 Chloride 110 H Carbon Dioxide 26 BUN 8 Creatinine 0.54 Estimated GFR > 60 BUN/Creatinine Ratio 14.8 Glucose 89 Calcium 8.5 Magnesium 1.9 Total Bilirubin 0.4 AST 84 H ALT 39 H Alkaline Phosphatase 66 Total Creatine Kinase 747 H D Total Protein 5.5 L Albumin 3.1 L Globulin 2.4 Albumin/Globulin Ratio 1.3 U Opiates 300ng/mL cut Positive H Ur Oxycodone Screen Positive H Urine Methadone Screen Negative Acetaminophen < 10 Ur Barbiturates Screen Negative U Tricyclic Antidepress Negative Ur Phencyclidine Scrn Negative Ur Amphetamines Screen Negative U Methamphetamines Scrn Negative Ur MDMA Scrn (Ecstasy) Negative U Benzodiazepines Scrn Positive H Urine Cocaine Screen Negative U Marijuana (THC) Screen Negative Urine pH Normal Urine Specific [place] Normal Ur Creatinine Normal PFSH Social History Smoking Status: Never smoker Discharge Plan Discharge Plan Patient Disposition: Home Discharge orders & Medications Prescriptions: Continued oxycodone 5 mg capsule 10 mg PO Q4-6H PRN (Reason: pain) morphine 60 mg tablet extended release 60 mg PO Q12H zolpidem [Ambien CR] 12.5 mg tablet,ext release multiphase 12.5 mg PO BEDTIME PRN (Reason: sleep) clonidine HCl 0.1 mg tablet 0.05 - 0.1 mg PO ONCE PM PRN (Reason: hypertension) Rx Instructions: takes if diastolic B P >100 diazepam 10 mg tablet 10 mg PO 3XD PRN (Reason: muscle spasm) tizanidine 4 mg tablet 8 mg PO Q8H PRN (Reason: muscle spasm) sertraline 25 mg tablet 25 mg PO DAILY fludrocortisone 0.1 mg tablet 0.1 mg PO 3XW metoclopramide HCl 10 mg tablet 10 mg PO Q6H PRN (Reason: nausea/vomiting) Follow up/Referrals: Miscellaneous,Doctor, [Non-Staff, Medical] Vee Kilpatrick, DNP, PHYSICAL EDUCATION AIDE [Primary Care Provider, Medical] Visit Report/Discharge Packet Stand Alone Forms: Patient Portal/API, Stroke Signs & Symptoms Discharge Data Primary Care Provider: Vee Kilpatrick Attending Provider: Gian King Admit Date/Time: 01/30/25 19:31 Quality VTE Deep Vein Thrombosis/Pulmonary Embolism Present on Admission: No
--- NOTE | 2025-01-31 15:56 | PC.NURSE ---
Event Note 0900- Patient sleeping soundly through most of shift, oriented/lethargic when awoken SBP soft 90's. 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 No complaints of pain/discomfort, states she did not sleep until 0400. Morning PO Morphine ER and Sertraline held per MD Jaime CHOWDARY. 1330- Patient A&O, complaints of chronic back pain/discomfort. Reviewed medications at bedside with patient and MAR, patient upset/tearful due to discontinuation of home PRNs and decreases in dosages of scheduled home pain medication. This RN to clarify orders with provider. Provider updated on patient request for breakthrough PO Oxycodone, stated patient now A&O, VSS (SBPs 130's), no complaints of dizzyness/lethargy and appropriate for medication. This RN also asked if morning PO Morphine ER could be given now, VORB received per MD Sandoval. This RN also asked if patient could initiate her home PO oxycodone for breakthrough pain. MD Sandoval turned and looked at this RN and said no for the 1st time, no for the 2nd time, no for the 3rd time, 4th, 5th, 6th, 7th then providers phone rang and was interrupted during his count. This RN stated ok and walked away to update patient. Patient updated. Patient asking if she can see a different doctor and what her choices are. Patient very tearful as to why she could not have her home medication regimen for her chronic pain. This RN informed patient that she could keep advocating for patient if pain/discomfort not resolved with PO Moprhine ER and PRN Xanax. Patient would like to wait and believed she could wait until change of shift for oncoming provider. 1545- This RN called to bedside by patient. Patient states she would like to speak to MD Sandoval if possible. This RN to provider stating patient in 220 would like to speak to you if you have a moment, provider states I have a moment now, is she awake? this RN states yes. Provider at bedside with patient. 1600- This RN called by Mary Beth Crockett in Dietary per dietary patient very upset and tearful post conversation with MD Sandoval. This RN at bedside with patient to follow-up. Per patient MD Sandoval accused patient of drug seeking, stated she was admitted for abusing narcotics and not rhabdomyolysis, cut her off multiple time during conversation and walked out mid conversation telling patient I'm not talking about this anymore. Patient also stated MD Sandoval stated he would call her PCP in regards to over prescription of controlled narcotics. This RN attempted to comfort patient. Patient stated she would like to file a formal complaint. This RN facilitated complaint along with Sarahi Voss and Mary Beth Cordero. Ree HOUGHO at bedside to take formal complaint. Ree HOUGHO to follow-up with MD Sandoval and update patient.
--- NOTE | 2025-01-31 16:27 | CM.DANOTE ---
DCP Assessment note pt is a 39yo F admitted with rhabdo/brief syncopal episode. PMH of spinal fusion resulting in pt having multiple OP pain medications. PCP Maude PHILIP and Adebayo HARVEY reviewed EMR per chart review, pt was at work when her coworkers thought she seemed altered. encouraged her to check into ED. per provider in morning rounds, concerns on polypharmacy overdose from OP pain meds, stopped all meds and plan to dc her when she becomes more alert later this afternoon. per RN, pt in a lot of pain throughout the day. reported to provider. provider did not order her pain meds to be restarted. pt upset, wanted to file complaint. AMBULATORY ANALYST attempted to meet with pt in room x2, talking with Ree from [facility] about complaint. per RN, pt wants to dc and walk to car at [place]? Will offer infromation for taxi to car. per chart, pt lives at home in [facility]. P; dc today home with likely OP f/u. if pt does not dc and is here tomorrow, AMBULATORY ANALYST will f/u with pt then. CANDICE Duque Discharge Planning/Care Management CM Discharge Assessment Start: 01/30/25 20:53 Freq: Status: Active Protocol: Document 01/31/25 16:23 (Rec: 01/31/25 16:27 [id number]) Discharge Planning Assessment Assigned Discharge CANDICE Krishna [employer] Advance Directives? No History Provided By Patient Prior Living Apartment/Condo Arrangements Household Members none Type of Drives own vehicle transporation used prior to admit Independent with ADL Yes 's Is patient alert and Yes oriented? Discharge Plan Home Review Status In Process Please Provide Date 01/31/25 Initial DC Assessment Was Performed Next Review Type Continued Stay Review
--- NOTE | 2025-01-31 19:43 | PC.NURSE ---
Discharge Note Patient A&O, VSS, RA. Discharge packet reviewed with patient, all questions/concerns addressed. PIV/TELE discontinued. Patient able to dress self and pack all belongings. Patient walked down to exit by PCT Luis E.
[2025-02-01 09:36] LABS: Hepatitis A Antibody IgM Negative (Negative); Hepatitis B Core Antibody IgM Negative (Negative); Hepatitis C Antibody Non Reactive (Non Reactive)
== END 2025-01-31 19:15 | disposition home or self-care (01) ==
LOC: ED 13:27 → AC 19:33
PROVIDERS: Internal Medicine; Admitting Provider Internal Medicine; Emergency Provider Family Medicine; PCP Nurse Practitioner Family; Referring Provider Family Medicine; Visit Provider Internal Medicine
DX: R53.1 Weakness (principal); R55 Syncope and collapse; M62.82 Rhabdomyolysis; G89.4 Chronic pain syndrome; F41.9 Anxiety disorder, unspecified; F32.A Depression, unspecified; Z98.1 Arthrodesis status; F11.229 Opioid dependence with intoxication, unspecified; T40.2X5A Adverse effect of other opioids, initial encounter; F13.229 Sedative, hypnotic or anxiolytic dependence with intoxication, unspecified; T42.6X5A Adverse effect of other antiepileptic and sedative-hypnotic drugs, initial encounter
CPT/HCPCS: 36415; 71045; 72100; 74176; 76705; 80053; 80074; 80305; 80329; 82550; 83690; 83735; 83880; 84484; 85025; 93005; 96361; 96374; 99284; G0378; G0480; J1885